=== PATIENT | male | born 1995 ===

== ENCOUNTER 2024-11-03 12:18 | Outpatient (CLI) | payer OTHER, SELFPAY ==
--- NOTE | ~2024-11-03 | US_ITS ---
Testicular ultrasound with doppler. Indication: Left testicular mass. Technique: Real-time sonography the scrotum was performed. Color flow Doppler and Doppler spectral an alysis were performed. Findings: The testes are homogeneous in echotexture bilaterally. There is no evidence of an intrates ticular mass. The right testis measures 4.1 x 2.3 x 3.0 cm and the left 4.4 x 2.1 x 2.7 cm. There is color-flow seen to both testes. Arterial and venous spectral waveforms are seen in both testes. There is no sonographic evidence of torsion. The head of the epididymis is visualized bilaterally and is within normal limits. Probable small left hydrocele present. Impression: No testicular mass or torsion. Small left hydrocele or other fluid collection at the inferior margin of the left testis. Reviewed, dictated and finalized at [facility]. Impression: No testicular mass or torsion. Small left hydrocele or other fluid collection at the inferior margin of the le ft testis.
== END 2024-11-03 12:19 | disposition home or self-care (01) ==
PROVIDERS: PCP Emergency Medicine; Visit Provider Emergency Medicine
DX: N50.89 Other specified disorders of the male genital organs (principal)
CPT/HCPCS: 76870; 93976